=== PATIENT | male | born 1960 | race Caucasian/White ===

== ENCOUNTER 2020-11-17 07:00 | Day surgery (SDC) | payer SELFPAY ==
[~2020-11-17 07:00] MED LIST: Lactated Ringers 1,000 ML IV SCH
[2020-11-17] MEDS ORDERED: fentaNYL 100 MCG/2 ML SDV ONE (08:13)
[2020-11-17] MEDS ORDERED: Propofol 200 MG/20 ML SDV ONE ×2 (08:13→08:26)
--- NOTE | 2020-11-17 14:29 | OR ---
DATE OF SURGERY: 11/17/2020. REFERRING PROVIDER: ABIODUN Alegria PRE-OPERATIVE DIAGNOSIS: History of colon polyps. Last colonoscopy was about 7 years ago per patient report. There is no family history of colon cancer. POST-OPERATIVE DIAGNOSES: 1. 3 mm polyp removed at 45 cm using cold forceps times a couple of bites. 2. Normal-appearing distal ileum. PROCEDURE: Colonoscopy with polypectomy x1 using cold forceps. SURGEON: Wai Landon M.D. ANESTHESIA: Monitored anesthesia care. BOWEL PREP: Good. Darrell is a 60-year-old who was brought to the endoscopy suite after discussing risks and benefits of the procedure. Informed consent was obtained for conscious sedation and colonoscopy with or without biopsy and/or polypectomy. We also discussed possibility of missed lesions. Pre-procedure exam was unremarkable. IV, oxygen, and monitors were placed. The patient was placed in the left lateral decubitus position. Sedation was administered and a digital rectal exam was performed which was unremarkable. Colonoscope was passed into the rectum and slowly advanced all the way to the cecum. Cecum was viewed and photographed. Ileocecal valve was briefly intubated and distal ileum was normal in appearance. The colonoscope was slowly withdrawn and the mucosa was closed observed in a direct circumferential manner. The ascending colon was unremarkable. The transverse colon was unremarkable. The descending colon revealed 3 mm polyp at 45 cm, removed using a couple of bites of cold forceps. The sigmoid colon was unremarkable. Retroflexion was performed and rectal mucosa was unremarkable. Scope was removed. The patient tolerated the procedure well. The patient was monitored until that baseline status. Discharge instructions were reviewed and the patient was discharged in good condition. COMPLICATIONS: None. TOTAL TIME: 23 minutes. ESTIMATED BLOOD LOSS: Less than 1 mL. RECOMMENDATIONS/FOLLOW-UP: We will await results of path report to determine ideal followup interval. I would like to kindly thank Wade Willis for this referral. DMB: 11/17/2020 09:46:40 MODL: 11/17/2020 13:20:28 /[id number]
== END 2020-11-17 09:55 | disposition home or self-care (01) ==
LOC: VM.SDS 07:00
PROVIDERS: ATTEND Family Medicine
DX: Z12.11 Encounter for screening for malignant neoplasm of colon (principal); D12.4 Benign neoplasm of descending colon; E78.2 Mixed hyperlipidemia; Z79.899 Other long term (current) drug therapy; Z01.812 Encounter for preprocedural laboratory examination; Z20.822 Contact with and (suspected) exposure to COVID-19
CPT/HCPCS: 00811; J2704; J3010; J7120; U0002

== ENCOUNTER 2022-04-11 13:13 | Emergency (ER) | payer OTHER ==
[2022-04-11 14:08] LABS: PTT,PARTIAL THROMBOPLSTIN TIME 22.6 SEC (20.5-30.9)
[2022-04-11 14:13] LABS: CHLORIDE,CL 101 mmol/L (98-107); SODIUM,NA 140 mmol/L (136-145)
[2022-04-11 14:14] LABS: ANION GAP 16.1 mmol/L (5-15); ESTIMATED GFR 85 mL/min (>=60)
[2022-04-11] MEDS ORDERED: Iopamidol 755 Mg/ML 100 ML Bottle IVPUSH ONE (15:27)
[2022-04-11] MEDS ORDERED: Aspirin 325 MG Tab.EC PO ONE (17:11)
== END 2022-04-11 17:54 | disposition short-term general hospital (02) ==
LOC: VM.ED 13:13
DX: R20.0 Anesthesia of skin (principal)
CPT/HCPCS: 36415; 70450; 70496; 80053; 82550; 82947; 83615; 84484; 85025; 85610; 85730; 93005; 93010; 99284; Q9967